=== PATIENT | female | born 1935 | race Caucasian/White ===

== ENCOUNTER 2016-05-29 23:13 | Emergency (ER) | payer OTHER, MEDICAID ==
[~2016-05-29] VITALS: Ht 152.4 cm; Wt 60.5 kg
[~2016-05-29 23:13] MED LIST: BENA40TA41 PO; CALC1TAB80 PO; GABA300C PO; HYDR-3498 PO; LEVO25TA53 PO; METF-382 PO; OMEP20CA16 PO; ONDA4TAB35 PO; SIMV40TA2 PO
[2016-05-29 23:28] VITALS: Ht 152.4 cm; Wt 60.5 kg
[2016-05-30] MEDS ORDERED: ONDANSETRON 4 MG INJ IV STA (04:30)
[2016-05-30] MEDS ORDERED: SOD CHLORIDE 0.9% 1,000 ML IV STA (04:30)
[2016-05-30] MEDS ORDERED: morphine 2 MG INJ IV STA (04:30)
[2016-05-30 05:08] LABS: EOSINOPHILS % 0.1 % (0.0-7.0); HEMATOCRIT 37.7 % (37.0-47.0); HEMOGLOBIN 12.8 g/dl (12.0-16.0); LYMPHOCYTES # 1.1 10^3/ul (0.8-2.9); LYMPHOCYTES % 10.3 % (15.0-51.0); MEAN CORPUSCULAR HEMOGLOBIN 29.3 pg (29.0-33.0); MEAN CORPUSCULAR HGB CONC 33.9 g/dl (32.0-37.0); MEAN CORPUSCULAR VOLUME 86.3 fl (82.0-101.0); MONOCYTE # 0.4 10^3/ul (0.3-0.9); MONOCYTES % 4.1 % (0.0-11.0); NEUTROPHILS % 85.5 % (39.0-77.0); PLATELET COUNT 287 10^3/UL (140-440); RED BLOOD COUNT 4.37 10^6/ul (4.20-5.40); RED CELL DISTRIBUTION WIDTH 14.4 % (11.5-14.5); UNCORRECTED WBC 10.5 10^3/ul (4.8-10.8); WHITE BLOOD COUNT 10.5 10^3/ul (4.8-10.8)
[2016-05-30 05:13] LABS: ALBUMIN 4.3 g/dl (3.3-4.9); CHLORIDE 97 mmol/L (97-110)
[2016-05-30 05:14] LABS: POTASSIUM 3.8 mmol/L (3.5-5.1); SODIUM 137 mmol/L (135-144)
[2016-05-30 05:16] LABS: ALBUMIN/GLOBULIN RATIO 1.34; ALKALINE PHOSPHATASE 133 IU/L (42-121); ANION GAP 18 (8-16); ASPARTATE AMINO TRANSFERASE 29 IU/L (15-46); BILIRUBIN,INDIRECT 0.1 mg/dl (0-1.1); BILIRUBIN,TOTAL 0.1 mg/dl (0.2-1.3); BLOOD UREA NITROGEN 13 mg/dl (7-20); CARBON DIOXIDE 26 mmol/L (21-31); TOTAL PROTEIN 7.5 g/dl (6.1-8.1)
[2016-05-30 05:17] LABS: ALANINE AMINOTRANSFERASE 31 IU/L (13-69); CALCIUM 9.4 mg/dl (8.4-10.2); GLUCOSE 188 mg/dl (70-220)
[2016-05-30 05:30] LABS: TROPONIN-I < 0.012 ng/ml (0.00-0.12)
[2016-05-30 05:35] LABS: CONDITION 1
--- NOTE | 2016-05-30 05:55 | RADRPT ---
PROCEDURE: CT of the abdomen and pelvis without contrast CLINICAL INDICATION: Abdominal Pain. TECHNIQUE: Spiral CT images through the abdomen and pelvis without the use of contrast. The admin istered radiation dose is CTDI 8.61 and DLP 505.86. One or more of the following dose reduction dennis hniques were used: automated exposure control, adjustment of the mA and/or kV according to patient s ize, or use of iterative reconstruction technique. COMPARISON: 11/26/2015 FINDINGS: Lack of oral and intravenous contrast somewhat limits evaluation. Slight dependent atelectasis of the lung bases is seen. No pleural effusion is seen. Aortic and coronary artery calcification is s een. Clips are seen from prior cholecystectomy.. Mildly prominent intrahepatic ducts are again seen with the common bile duct measuring 1.3 cm in diameter, unchanged. Small left renal stone is again seen . No hydronephrosis is seen. No stones are seen in the right kidney, hydroureter, or the urinary b ladder. Tiny calcification of the pancreatic head is again seen.. The appendix is not seen but no definite pericecal inflammatory process is seen. There is no definite evidence for small bowel obst ruction, free air, or abscess. The uterus is lobulated in contour which may reflect underlying fibr oids. The urinary bladder is mildly distended without definite stone or mass. Artifact from right hip hardware limits evaluation of the pelvis. Tiny fat-containing umbilical hernia is seen. There is colonic diverticulosis without evidence of diverticulitis. No adenopathy or ascites is seen. T here is mild degenerative change of the spine. IMPRESSION: Stable intra and extrahepatic biliary ductal dilatation. Prior cholecystectomy. Stable small left renal stone. No hydronephrosis and no stones in the ureters or bladder Diverticulosis without evidence of diverticulitis.. RPTAT: [facility] Physician Damian Date Time Electronically viewed and signed by Physician Damian on 05/30/2016 05:54 BENIGNO/
[2016-05-30 06:35] LABS: URINE BILIRUBIN (Dip) NEGATIVE (NEGATIVE); URINE BLOOD (Dip) NEGATIVE (NEGATIVE); URINE COLOR LT. YELLOW (YELLOW); URINE KETONES (Dip) NEGATIVE (NEGATIVE); URINE LEUKOCYTE ESTERASE (Dip) NEGATIVE (NEGATIVE); URINE NITRITE (Dip) NEGATIVE (NEGATIVE); URINE UROBILINOGEN (Dip) 0.2 E.U./dL (0.1-1.0)
[2016-05-30 06:39] LABS: ADD UMIC NO; URINE TOTAL PROTEIN (Dip) NEGATIVE (NEGATIVE)
[2016-05-30 07:00] VITALS: BP 152/72; PULSE 76; RESP 18
[2016-05-30] MEDS ORDERED: MAGN296S40 PO (07:14)
[2016-05-30] MEDS ORDERED: RANI150T9 PO (07:14)
[2016-05-30] MEDS ORDERED: ONDA-43 PO (07:14)
[2016-05-30] MEDS ORDERED: NAPR-688 PO (07:14)
[2016-05-30] MEDS ORDERED: POLY17PO6 PO (07:14)
--- NOTE | 2016-05-30 07:21 | ERD ---
ER Documentation Chief Complaint Date/Time DATE: 05/30/16 TIME: 07:16 Chief Complaint AP x1 days HPI This 81-year-old female presents with 1 day of intermittent mid and upper crampy abdominal pain as well as episodes of nonbloody nonbilious vomiting. She denies diarrhea constipation. She has no chest pain or shortness of breath. She has not had any fevers and chills. ROS All systems reviewed and are negative except as per history of present illness. Medications Home Meds Active Scripts Ranitidine Hcl* (Zantac*) 150 Mg Tablet, 150 MG PO BID Y for EPIGASTRIC PAIN, # 30 TAB Prov:YUE ROMAN DO 05/30/16 Naproxen* (Naproxen*) 500 Mg Tablet, 375 MG PO BID Y for PAIN, #20 TAB Prov:YUE ROMAN DO 05/30/16 Polyethylene Glycol* (Miralax*) 17 Gm Powd.pack, 17 GM PO DAILY, #7 Prov:YUE ROMAN 05/30/16 Magnesium Citrate* (Magnesium Citrate*) 296 Ml Solution, 296 ML PO ONCE, #1 BOTTLE Prov:YUE ROMAN DO 05/30/16 Ondansetron Hcl* (Zofran*) 4 Mg Tab, 4 MG PO Q4H Y for NAUSEA AND OR VOMITING, # 10 TAB Prov:YUE ROMAN DO 05/30/16 Ondansetron Hcl* (Zofran* ODT) 4 mg -ODT Tab.disper, 4 MG PO Q6 Y for NAUSEA AND /OR VOMITING, #30 TAB Prov:POLY TAYLOR MD 11/26/15 Hydrocodone Bit-Acetaminophen* (Miramonte*) 5-325 Mg Tab, 1 TAB PO Q6 Y for PAIN, # 7 TAB Prov:POLY TAYLOR MD 11/26/15 Reported Medications Omeprazole* (Omeprazole*) 20 Mg Capsule.dr, 20 MG PO DAILY, #30 CAP 11/26/15 Metformin Hcl* (Metformin Hcl*) 500 Mg Tablet, 500 MG PO WITH BREAKFAST DINNE, # 30 TAB 11/26/15 Gabapentin* (Neurontin*) 300 Mg Capsule, 300 MG PO QHS, CAP 05/16/14 Benazepril Hcl* (Benazepril Hcl*) 40 Mg Tablet, 40 MG PO QHS, TAB 05/16/14 Calcium Carbonate/Vitamin D3 (Oysco 500+D Tablet) 1 Tab Tablet, 1 TAB PO DAILY 05/16/14 Levothyroxine Sodium* (Levothyroxine Sodium*) 25 Mcg Tablet, 25 MCG PO DAILY, TAB 05/16/14 Simvastatin* (Zocor*) 40 Mg Tablet, 40 MG PO HS, TAB 05/16/14 Allergies Allergies: Coded Allergies: Penicillins (Verified Allergy, Unknown, 07/10/15) PMhx/Soc History of Surgery: Yes (L LE ORIF (unspecified).) Anesthesia Reaction: No Hx Neurological Disorder: No Hx Respiratory Disorders: No Hx Cardiac Disorders: Yes (HTN) Hx Psychiatric Problems: No Hx Miscellaneous Medical Probl: Yes (DM, chronic metabolic syndrome, arterial HTN, DJD, osteoporosis, hypothyroi) Hx Alcohol Use: No Hx Substance Use: No Hx Tobacco Use: No Smoking Status: Never smoker Physical Exam Vitals Vital Signs Date Time Temp Pulse Resp B/P Pulse Ox O2 Delivery O2 Flow Rate FiO2 05/30/16 05:13 72 17 120/70 99 Room Air 05/30/16 04:15 84 18 156/66 98 Room Air 05/29/16 23:28 97.7 95 20 174/75 95 Physical Exam Const: [] No distress Head: Atraumatic Eyes: Normal Conjunctiva ENT: Normal External Ears, Nose and Mouth. Neck: Full range of motion..~ No meningismus. Resp: Clear to auscultation bilaterally Cardio: Regular rate and rhythm, no murmurs Abd: Soft, very mild tenderness above the umbilicus without guarding or rebound., non distended. Normal bowel sounds Skin: No petechiae or rashes Back: No midline or flank tenderness Ext: No cyanosis, or edema Neur: Awake and alert and oriented 3, no focal deficits Psych: Normal Mood and Affect Result Diagram: 05/30/16 0454 05/30/164 Results 24 hrs Laboratory Tests Test 05/30/16 04:54 05/30/16 05:09 Alanine Aminotransferase (ALT/SGPT) 31IU/L Albumin 4.3g/dl Albumin/Globulin Ratio 1.34 Alkaline Phosphatase 133IU/L Anion Gap 18 Aspartate Amino Transf (AST/SGOT) 29IU/L Basophils # 0.010^3/ul Basophils % 0.0% Blood Urea Nitrogen 13mg/dl Calcium Level 9.4mg/dl Carbon Dioxide Level 26mmol/L Chloride Level 97mmol/L Creatinine 0.60mg/dl Direct Bilirubin 0.00mg/dl Eosinophils # 0.010^3/ul Eosinophils % 0.1% Globulin 3.20g/dl Glucose Level 188mg/dl Hematocrit 37.7% Hemoglobin 12.8g/dl Indirect Bilirubin 0.1mg/dl Lactic Acid Level 1.8mmol/L Lipase 66U/L Lymphocytes # 1.110^3/ul Lymphocytes % 10.3% Mean Corpuscular Hemoglobin 29.3pg Mean Corpuscular Hemoglobin Concent 33.9g/dl Mean Corpuscular Volume 86.3fl Mean Platelet Volume 8.0fl Monocytes # 0.410^3/ul Monocytes % 4.1% Neutrophils # 9.010^3/ul Neutrophils % 85.5% Nucleated Red Blood Cells # 0.010^3/ul Nucleated Red Blood Cells % 0.0/100WBC Platelet Count 71294^3/UL Potassium Level 3.8mmol/L Red Blood Count 4.3710^6/ul Red Cell Distribution Width 14.4% Sodium Level 137mmol/L Total Bilirubin 0.1mg/dl Total Protein 7.5g/dl Troponin I < 0.012ng/ml White Blood Count 10.510^3/ul Urine Bilirubin NEGATIVE Urine Clarity CLEAR Urine Color LT. YELLOW Urine Glucose 0.1%% Urine Hemoglobin NEGATIVE Urine Ketones NEGATIVE Urine Leukocyte Esterase NEGATIVE Urine Nitrite NEGATIVE Urine Specific [place] 1.020 Urine Total Protein NEGATIVE Urine Urobilinogen 0.2 E.U./dL Urine pH 6.0 Current Medications Medications (Trade) Dose Ordered Sig/Zeny Route PRN Reason Start Time Stop Time Status Last Admin Dose Admin Sodium Chloride (NS) 1,000 ml @ 1,000 mls/hr Q1H STAT IV 05/30/16 04:30 05/30/16 05:29 DC 05/30/16 05:07 Morphine Sulfate (morphine) 2 mg ONCE STAT IV 05/30/16 04:30 05/30/16 04:32 DC 05/30/16 05:08 Ondansetron HCl (Zofran Inj) 4 mg ONCE STAT IV 05/30/16 04:30 05/30/16 04:32 DC 05/30/16 05:07 Procedures/MDM Intermittent abdominal pain and vomiting without evidence of serious infection. Patient was given Zofran and a small dose of morphine which resolved abdominal pain and nausea. Patient was able to take by mouth water after this. Cardiac workup was performed as well because of the vomiting epigastric abdominal pain and a elderly patient with risk factors. No signs of ischemia on laboratories or EKG or patient account liaison. The same abdominal laboratories or findings on CT to suggest any emergent process. His patient's virtually asymptomatic emergency room and a discharge her with Zofran as well as Zantac. Giving her 375 mg naproxen for pain. I reviewed her CT myself and I do see stool throughout the colon although no specific distention to suggest serious constipation. We'll give her some magnesium citrate and MiraLAX as well. Having her follow-up with a primary care doctor on Wednesday and given return precautions to the ER for worsening or continuing symptoms not controlled by medication. EKG interpretation: Normal sinus rhythm rate of 82, left axis deviation, right bundle block, no ST-T wave changes concerning for acute ischemia. b2b sales professional interpretation: Normal sinus rhythm without arrhythmia CT abdomen and pelvis interpretation: See no acute process, no obstruction, no free air, no abnormal fat stranding, no dependent pulmonary findings, no fractures. Departure Diagnosis: Primary Impression: Abdominal pain Additional Impression: Vomiting Condition: Stable Patient Instructions: Abdominal Pain, Vomiting (7Y-Adult) Additional Instructions: Llame al doctor MAANA y cristian tess LAZ PARA DENTRO DE 2-3 MORGAN.Dgale a la secretaria que nosotros le instruimos hacer esta laz.Avise o llame si kevin condicin se empeora antes de la laz. Regresa aqui si peor o no mejor. YUE ROMAN DO May 30, 2016 07:21
== END 2016-05-30 07:30 | disposition home or self-care (01) ==
LOC: E/R 23:13
DX: R10.10 Upper abdominal pain, unspecified (principal); R11.10 Vomiting, unspecified; I10 Essential (primary) hypertension; E11.9 Type 2 diabetes mellitus without complications; E03.9 Hypothyroidism, unspecified; Z79.84 Long term (current) use of oral hypoglycemic drugs
CPT/HCPCS: 36415; 74176; 80053; 81003; 83605; 83690; 84484; 85025; 96374; 96375; 99285; J2270; J2405; J7030; 93005